=== PATIENT | female | born 1930 | race Caucasian/White ===

== ENCOUNTER → 2017-11-11 | Outpatient (CLI) | payer MEDICARE ==
[~2017-11-11] MED LIST: ALBIPROI INH; ALBU90OI6 INH; AZIT250 PO; Aspir 8181 MG; B Complex1 EAC2; BENZ100A PO; CELE100; CIPR500; CLIN300 PO; CONEST.3; CONEST1.25 PO; Furosemide20 MG; HYDACE5 PO; HYDCHLSU PO; LASIX; LEVSOD25 PO; Norco 5-325 Ta1 EACH PO; PANT40 PO; PRED5 PO; PROM25 PO; QUIN325; RXPROM25 PO; Synthroid75 MCG; TESSALON; TRIA55OI; TRIAOIA; Zofran Odt4 MG SL
== END | disposition home or self-care (01) ==
LOC: PLD 10:17 → LAB SHORT 10:17
DX: D48.5 Neoplasm of uncertain behavior of skin (principal)
CPT/HCPCS: 88305